=== PATIENT | male | born 1995 | race Caucasian/White ===

== ENCOUNTER 2017-01-14 11:54 | Emergency (ER) | payer OTHER | END 2017-01-14 13:46 | disposition home or self-care (01) | LOC: SCSER 11:54 | DX: B34.9 Viral infection, unspecified (principal); Z79.899 Other long term (current) drug therapy | CPT/HCPCS: 87081; 87430; 99283 ==

== ENCOUNTER 2017-12-14 10:18 | Emergency (ER) | payer OTHER | END 2017-12-14 10:52 | disposition home or self-care (01) | LOC: SCSER 10:18 | DX: F41.9 Anxiety disorder, unspecified (principal); F32.9 Major depressive disorder, single episode, unspecified; F43.10 Post-traumatic stress disorder, unspecified; F17.210 Nicotine dependence, cigarettes, uncomplicated; Z79.899 Other long term (current) drug therapy | CPT/HCPCS: 99283 ==

== ENCOUNTER 2020-02-11 09:10 | Outpatient (CLI) | payer OTHER ==
--- NOTE | 2020-02-11 10:48 | CT ---
CT temporal bones noncontrast: 02/11/2020 HISTORY: 25-year-old male with ICD-10: "H 90.2, conductive hearing loss" COMPARISON: None FINDINGS: Bilateral ossicles are intact, with no displacement or erosion. The bilateral external auditory canals, middle ear cavities, mastoid antra, and most or all of the ma stoid air cells, are clear. The bilateral internal auditory canals, cochleae, vestibules, vestibular aqueducts, semicircular dina ls, facial nerve canals, carotid canals, jugular bulbs, and TMJs, have normal morphology. There is no abnormal thickening of the tympanic membranes. Left tegmen tympani is thin such that it is difficult to evaluate for dehiscence. Scutum is intact bilaterally. No dehiscence of superior semicircular canals. No strong evidence of otosclerosis. There is partial opacification of some of the right posterior ethmoid air cells and some of the left anterior ethmoid air cells. IMPRESSION: No pathology identified involving middle ears and inner ears.
== END 2020-02-11 09:11 | disposition home or self-care (01) ==
LOC: SCSCT 09:10
PROVIDERS: ATTEND Student in an Organized Health Care Education/Training Program
DX: H90.2 Conductive hearing loss, unspecified (principal)
CPT/HCPCS: 70480

== ENCOUNTER 2020-03-14 11:12 | Outpatient (CLI) | payer OTHER ==
[2020-03-14 17:10] LABS: SARS-CoV-2 MS2 Positive; SARS-CoV-2 N Gene Positive; SARS-CoV-2 S Gene Positive; SARS-CoV-2 by NAA DETECTED (NotDetected); SARS-CoV-2 orf1ab Positive
== END 2020-03-14 11:13 | disposition home or self-care (01) ==
LOC: LABBT 11:12
PROVIDERS: ATTEND Student in an Organized Health Care Education/Training Program
DX: U07.1 COVID-19 (principal)
CPT/HCPCS: 87635; U0003

== ENCOUNTER 2020-04-01 07:19 | Day surgery (SDC) | payer OTHER ==
[2020-03-31 12:03] VITALS: BMI 20.4
[2020-04-01] MEDS ORDERED: Scopolamine 1.5 mg/72 hour Patch ONE (08:43)
[2020-04-01] MEDS ORDERED: Fentanyl 100 MCG/2 ML VIAL ONE ×3 (09:47→14:16)
[2020-04-01] MEDS ORDERED: Midazolam HCl 2 mg/2 ml Vial ONE (09:47)
[2020-04-01] MEDS ORDERED: Bacitracin Zinc Ointment 30 gm TUBE ONE (09:48)
[2020-04-01] MEDS ORDERED: Lidocaine 1% w/Epinephrine 1:100K 20 ML VIAL ONE (09:48)
[2020-04-01] MEDS ORDERED: EPINEPHrine 1 MG/ML AMP ONE (09:48)
[2020-04-01] MEDS ORDERED: Ciprofloxacin 0.2% Otic (0.25ML CONTAINER) ONE ×2 (09:49→12:32)
[2020-04-01] MEDS ORDERED: Rocuronium Bromide 10 MG/ML (10ML VIAL) ONE (10:26)
[2020-04-01] MEDS ORDERED: Dexamethasone 20 MG/5 ML VIAL ONE (10:26)
[2020-04-01] MEDS ORDERED: Ondansetron PF 4 MG/2 ML Vial ONE ×2 (10:26→13:32)
[2020-04-01] MEDS ORDERED: ePHEDrine 50 MG/ML VIAL ONE (10:26)
[2020-04-01] MEDS ORDERED: Lidocaine 1% PF 5 ML VIAL ONE (10:26)
[2020-04-01] MEDS ORDERED: PROPOFOL 200 MG/20 ML VIAL ONE (10:26)
[2020-04-01] MEDS ORDERED: Glycopyrrolate 0.2 MG/ML 5 ML SYRINGE ONE (10:26)
[2020-04-01] MEDS ORDERED: PHENYLEPHRINE-NS 100 MCG/ML 10 ML SYRINGE ONE (10:26)
[2020-04-01] MEDS ORDERED: Promethazine HCl 25 MG/ML VIAL ONE (13:39)
--- NOTE | 2020-04-02 13:29 | OP ---
DATE OF PROCEDURE: 04/01/2020 PREOPERATIVE DIAGNOSES: Right tympanic membrane perforation, dizziness and imbalance with conductive hearing loss. POSTOPERATIVE DIAGNOSIS: Right tympanic membrane perforation, dizziness and imbalance with conductive hearing loss. PROCEDURES PERFORMED: Microscopic tympanoplasty and fascia grafting. PERMIT: Procedures, benefits, risks including those of bleeding, infection, injury from anesthesia, allergic reaction, loss of hearing, failure of perforation to heal necessitating revision or repair, and alternatives were reviewed with the patient and family, who expressed understanding of the information. The consent form was signed and witnessed and a paper copy of the consent form is available for review in the paper chart. INDICATION: This is a patient presenting with a tympanic membrane perforation with complaint of hearing loss, tinnitus as well as dizziness and imbalance as well as occasional ear drainage. ASSISTANTS: None. FINDINGS: Central TM perforation, inflammation of the middle ear, ear drum and surrounding ear canal. DESCRIPTION OF OPERATION: The patient was brought to the operating room and laid supine on the operating room table. General endotracheal anesthesia was administered. The bed was turned 90 degrees to the patient's right. The patient's postauricular area was evaluated and cleaned with an alcohol pad as well as the ear canal and 1% Xylocaine with 1:100,000 epinephrine was injected postauricularly and in the ear canal. At this time, the patient was prepped and draped in a sterile fashion. The operating microscope was brought into place and the ear canal was cleaned with suction and cerumen loops as well as evaluated and the prep had made it down all the way to the tympanic membrane perforation. At this time, the ear was then irrigated and suctioned clean. The operating microscope was then taken back and a postauricular incision was made with a 15 blade scalpel with Bovie cautery down to the pretemporalis fascia. At this point, Weitlaner was placed and undermining of the subcutaneous tissue was undertaken with tenotomy scissors using bipolar for hemostasis. After a wide portion of fascia was identified roughly 2 cm x 2 cm portion of fascia was removed using a 15 blade scalpel to cut the edges and then using an [place]on to elevate the fascia and using a 15 blade scalpel to remove a thin layer from the underlying tissue. After this was removed, it was laid flat on the Fascia Press and a [employer] sponge was placed over the top and the Fascia Press was compressed. The wound was then closed with 4-0 Vicryl deep sutures as well as 5-0 fast gut suture in a running continuous fashion. Next, the microscope was then brought in place and the Fascia Press was opened and a lamp was placed. The ear canal was then evaluated and the TM perforation was then rimmed using a Vergara needle as well as a sickle knife. After this was completed, a careful elevation of the tympanic membrane was undertaken using a round knife and a [place] blade to make an incision with a posterior ear canal skin flap, which extended towards the lateral margin. After this was completed, a round knife and a suction was used to elevate the tympanic membrane all the way to the annulus. A Vergara needle was used to make an inferior perforation through the mucosa of the middle ear space and then a Gimmick tympanic membrane elevator was then used to elevate the tympanic membrane anteriorly as well as posteriorly all the way up to where the head of the malleus was identified. A Vergara needle was then used to separate the TM from the malleus from the head down to the handle. After this was elevated and the TM was then reflected superiorly and away from the middle ear space, the ear was then again irrigated and suctioned. Hemostasis was achieved with 1:1000 epinephrine soaked cotton ball pads and then removed. At this point, the fascia graft was then trimmed and cut to the appropriate size and placed underneath the TM and then the fascia was then elevated moving the TM and fascia out of the way and then small pieces of Gelfoam were then used to pack the middle ear space and the fascia graft and TM was then replaced using a small lip of fascia graft that extended into the ear canal and also anchored the tympanomeatal flap. Gelfoam was then placed to compress the tympanoplasty repair and then filled the ear canal to the middle EAC. Bacitracin was then placed in the ear canal and then more Gelfoam and a cotton ball as well as a dressing placed over the ear to hold it in place. After this was completed, the microscope was removed. The postauricular incision was intact. There was no bleeding and the patient was turned over to Anesthesia for emergence. Job ID: [id number] [facility]
== END 2020-04-01 16:20 | disposition home or self-care (01) ==
LOC: SDC 07:19
PROVIDERS: ATTEND Student in an Organized Health Care Education/Training Program
PROC: 09U787Z Supplement Right Tympanic Membrane with Autologous Tissue Substitute, Via Natural or Artificial Opening Endoscopic (ICD-10-PCS; principal; 2020-04-01)
DX: H72.91 Unspecified perforation of tympanic membrane, right ear (principal); H90.2 Conductive hearing loss, unspecified; Z79.82 Long term (current) use of aspirin; Z79.899 Other long term (current) drug therapy; Z91.018 Allergy to other foods
CPT/HCPCS: J0171; J1100; J2250; J2405; J2550; J2704; J3010; J3490

== ENCOUNTER 2020-10-02 14:54 | Outpatient (CLI) | payer OTHER ==
[2020-10-03 11:09] LABS: SARS-CoV-2 PCR by NAA Not Detected (NotDetected)
== END 2020-10-02 14:55 | disposition home or self-care (01) ==
LOC: LABBT 14:54
PROVIDERS: ATTEND Student in an Organized Health Care Education/Training Program
DX: Z01.812 Encounter for preprocedural laboratory examination (principal); H90.2 Conductive hearing loss, unspecified; H72.91 Unspecified perforation of tympanic membrane, right ear; R42 Dizziness and giddiness; R26.89 Other abnormalities of gait and mobility; Z20.822 Contact with and (suspected) exposure to COVID-19
CPT/HCPCS: U0003; U0005

== ENCOUNTER 2020-10-07 06:36 | Day surgery (SDC) | payer OTHER ==
[2020-10-06 14:37] VITALS: BMI 19.5
[2020-10-07] MEDS ORDERED: Lidocaine 1% w/Epinephrine 1:100K 20 ML VIAL ONE (06:46)
[2020-10-07] MEDS ORDERED: Bacitracin Zinc Ointment 30 gm TUBE ONE (06:46)
[2020-10-07] MEDS ORDERED: EPINEPHrine 1 MG/ML AMP ONE (06:46)
[2020-10-07] MEDS ORDERED: Ciprofloxacin 0.2% Otic (0.25ML CONTAINER) ONE (06:46)
[2020-10-07] MEDS ORDERED: Scopolamine 1.5 mg/72 hour Patch ONE (07:12)
[2020-10-07] MEDS ORDERED: Acetaminophen 500 MG TAB ONE (07:12)
[2020-10-07] MEDS ORDERED: Midazolam HCl 2 mg/2 ml Vial ONE (07:12)
[2020-10-07] MEDS ORDERED: SUGAMMADEX SODIUM 500 MG/5 ML VIAL ONE (07:30)
[2020-10-07] MEDS ORDERED: Fentanyl 100 MCG/2 ML VIAL ONE ×2 (07:30→13:12)
[2020-10-07] MEDS ORDERED: Meperidine HCl/PF 25 MG/ML VIAL ONE (07:30)
[2020-10-07] MEDS ORDERED: Famotidine/PF 20 mg/2ml Vial ONE (07:30)
[2020-10-07] MEDS ORDERED: PROPOFOL 200 MG/20 ML VIAL ONE (08:33)
[2020-10-07] MEDS ORDERED: Ketorolac Tromethamine 30 MG/ML VIAL ONE (08:33)
[2020-10-07] MEDS ORDERED: Lidocaine 1% PF 5 ML VIAL ONE (08:33)
[2020-10-07] MEDS ORDERED: Metoclopramide HCl 10 MG/2 ML VIAL ONE (08:33)
[2020-10-07] MEDS ORDERED: Rocuronium Bromide 10 MG/ML (10ML VIAL) ONE (08:33)
[2020-10-07] MEDS ORDERED: PHENYLEPHRINE-NS 100 MCG/ML 10 ML SYRINGE ONE (08:33)
[2020-10-07] MEDS ORDERED: Dexamethasone 20 MG/5 ML VIAL ONE (08:33)
[2020-10-07] MEDS ORDERED: Ondansetron PF 4 MG/2 ML Vial ONE ×2 (08:33→12:19)
[2020-10-07] MEDS ORDERED: Promethazine HCl 25 MG/ML VIAL ONE (12:28)
== END 2020-10-07 15:25 | disposition home or self-care (01) ==
LOC: SDC 06:36
PROVIDERS: ATTEND Student in an Organized Health Care Education/Training Program
PROC: 09Q70ZZ Repair Right Tympanic Membrane, Open Approach (ICD-10-PCS; principal; 2020-10-07)
DX: H90.2 Conductive hearing loss, unspecified (principal); H72.91 Unspecified perforation of tympanic membrane, right ear; Z79.899 Other long term (current) drug therapy; Z91.018 Allergy to other foods
CPT/HCPCS: J0171; J0690; J1100; J1885; J2175; J2250; J2405; J2550; J2704; J2765; J3010; S0028